=== PATIENT | male | born 1965 | race Caucasian/White ===

== ENCOUNTER → 2017-08-30 | Outpatient (CLI) | payer BC ==
[~2017-08-30] MED LIST: IOHEXOL 240 MG/ML 50ML VIAL. ONE; IOHEXOL 300 MG/ML 75 ML VIAL. IV ONE
--- NOTE | 2017-08-30 16:55 | RAD ---
Indication abdominal pain. Chronic diarrhea. Colitis. Axial images through the abdomen and pelvis were obtained. Both oral and IV contrast were administered. Approximately 75 cc of Omnipaque 300 was administered. No prior imaging of the abdomen or pelvis is available. No significant finding is seen at the lung bases. There is irregularity involving a right lower rib having a chronic appearance. The liver and spleen appear unremarkable and the gallbladder appears grossly normal. No pancreatic abnormality is seen. No adrenal or significant renal anomaly is seen. There is a low-density 2 cm mass off the caudal aspect of the right kidney compatible with a cyst. No mass inflammatory process or acute finding in the abdomen is seen. In the pelvis occasional diverticula are seen associated with the large bowel. These are most pronounced in the sigmoid colon. Active inflammation is not seen. The prostate is minimally enlarged. An acute or significant finding in the pelvis is not apparent. IMPRESSION: No acute or significant finding seen in the abdomen or pelvis. Diverticulosis involving the large bowel. Minimally enlarged prostate PQRS Compliance Statement: One or more of the following individualized dose reduction techniques were utilized for this examination: 1. Automated exposure control 2. Adjustment of the mA and/or kV according to patient size 3. Use of iterative reconstruction technique
== END | disposition home or self-care (01) ==
LOC: CT 15:13
PROVIDERS: ATTEND Nurse Practitioner Family
DX: K52.89 Other specified noninfective gastroenteritis and colitis (principal); K57.30 Diverticulosis of large intestine without perforation or abscess without bleeding; N40.0 Benign prostatic hyperplasia without lower urinary tract symptoms; R19.7 Diarrhea, unspecified; E11.65 Type 2 diabetes mellitus with hyperglycemia; E78.4 Other hyperlipidemia; K21.9 Gastro-esophageal reflux disease without esophagitis; I10 Essential (primary) hypertension
CPT/HCPCS: 74177; Q9966; Q9967